=== PATIENT | female | born 1960 | race Caucasian/White ===

== ENCOUNTER 2017-01-31 10:52 | Outpatient (CLI) | payer SELFPAY | END 2017-01-31 10:53 | disposition home or self-care (01) | LOC: LAB.F 10:52 | PROVIDERS: ATTEND Physician Assistant | DX: I82.403 Acute embolism and thrombosis of unspecified deep veins of lower extremity, bilateral (principal); I27.82 Chronic pulmonary embolism; Z79.01 Long term (current) use of anticoagulants | CPT/HCPCS: 85610 ==

== ENCOUNTER 2017-02-10 15:12 | Outpatient (CLI) | payer SELFPAY | END 2017-02-10 15:13 | disposition home or self-care (01) | LOC: LAB.F 15:12 | PROVIDERS: ATTEND Physician Assistant | DX: Z79.01 Long term (current) use of anticoagulants (principal) | CPT/HCPCS: 85610 ==

== ENCOUNTER 2017-05-16 09:36 | Outpatient (CLI) | payer SELFPAY | END 2017-05-16 09:37 | disposition home or self-care (01) | LOC: LAB.F 09:36 | PROVIDERS: ATTEND Physician Assistant | DX: Z79.01 Long term (current) use of anticoagulants (principal); I82.403 Acute embolism and thrombosis of unspecified deep veins of lower extremity, bilateral; I27.82 Chronic pulmonary embolism | CPT/HCPCS: 85610 ==

== ENCOUNTER 2017-06-19 14:07 | Outpatient (CLI) | payer SELFPAY | END 2017-06-19 14:08 | disposition home or self-care (01) | LOC: LAB.F 14:07 | PROVIDERS: ATTEND Physician Assistant | DX: Z79.01 Long term (current) use of anticoagulants (principal); I82.403 Acute embolism and thrombosis of unspecified deep veins of lower extremity, bilateral; I27.82 Chronic pulmonary embolism | CPT/HCPCS: 85610 ==

== ENCOUNTER 2017-07-17 09:50 | Outpatient (CLI) | payer SELFPAY | END 2017-07-17 09:51 | disposition home or self-care (01) | LOC: LAB.F 09:50 | PROVIDERS: ATTEND Physician Assistant | DX: Z79.01 Long term (current) use of anticoagulants (principal); I82.403 Acute embolism and thrombosis of unspecified deep veins of lower extremity, bilateral; I27.82 Chronic pulmonary embolism | CPT/HCPCS: 85610 ==

== ENCOUNTER 2017-08-01 10:43 | Outpatient (CLI) | payer SELFPAY | END 2017-08-01 10:44 | disposition home or self-care (01) | LOC: LAB.F 10:43 | PROVIDERS: ATTEND Physician Assistant | DX: Z79.01 Long term (current) use of anticoagulants (principal); I82.403 Acute embolism and thrombosis of unspecified deep veins of lower extremity, bilateral; I27.82 Chronic pulmonary embolism | CPT/HCPCS: 85610 ==

== ENCOUNTER 2017-08-15 09:28 | Outpatient (CLI) | payer SELFPAY | END 2017-08-15 09:29 | disposition home or self-care (01) | LOC: LAB.F 09:28 | PROVIDERS: ATTEND Physician Assistant | DX: Z79.01 Long term (current) use of anticoagulants (principal); I82.403 Acute embolism and thrombosis of unspecified deep veins of lower extremity, bilateral; I27.82 Chronic pulmonary embolism | CPT/HCPCS: 85610 ==

== ENCOUNTER 2017-08-28 14:25 | Outpatient (CLI) | payer SELFPAY | END 2017-08-28 14:26 | disposition home or self-care (01) | LOC: LAB.F 14:25 | PROVIDERS: ATTEND Physician Assistant | DX: Z79.01 Long term (current) use of anticoagulants (principal); I82.403 Acute embolism and thrombosis of unspecified deep veins of lower extremity, bilateral; I27.82 Chronic pulmonary embolism | CPT/HCPCS: 85610 ==

== ENCOUNTER 2017-09-19 08:00 | Outpatient (CLI) | payer SELFPAY | END 2017-09-19 23:59 | disposition home or self-care (01) | LOC: LAB.F 08:00 | PROVIDERS: ATTEND Physician Assistant | DX: Z79.01 Long term (current) use of anticoagulants (principal); I82.403 Acute embolism and thrombosis of unspecified deep veins of lower extremity, bilateral; I27.82 Chronic pulmonary embolism | CPT/HCPCS: 85610 ==

== ENCOUNTER 2017-10-31 09:49 | Outpatient (CLI) | payer SELFPAY | END 2017-10-31 09:50 | disposition home or self-care (01) | LOC: LAB.F 09:49 | PROVIDERS: ATTEND Physician Assistant | DX: Z79.01 Long term (current) use of anticoagulants (principal); I82.403 Acute embolism and thrombosis of unspecified deep veins of lower extremity, bilateral; I27.82 Chronic pulmonary embolism | CPT/HCPCS: 85610 ==

== ENCOUNTER 2017-12-05 07:42 | Outpatient (CLI) | payer SELFPAY | END 2017-12-05 07:43 | disposition home or self-care (01) | LOC: LAB.F 07:42 | PROVIDERS: ATTEND Physician Assistant | DX: Z79.01 Long term (current) use of anticoagulants (principal); I82.403 Acute embolism and thrombosis of unspecified deep veins of lower extremity, bilateral; I27.82 Chronic pulmonary embolism | CPT/HCPCS: 85610 ==

== ENCOUNTER 2018-01-30 09:02 | Outpatient (CLI) | payer SELFPAY | END 2018-01-30 09:03 | disposition home or self-care (01) | LOC: LAB.F 09:02 | PROVIDERS: ATTEND Physician Assistant | DX: Z79.01 Long term (current) use of anticoagulants (principal); I82.403 Acute embolism and thrombosis of unspecified deep veins of lower extremity, bilateral; I27.82 Chronic pulmonary embolism | CPT/HCPCS: 85610 ==

== ENCOUNTER 2018-03-06 09:29 | Outpatient (CLI) | payer SELFPAY | END 2018-03-06 09:30 | disposition home or self-care (01) | LOC: LAB.F 09:29 | PROVIDERS: ATTEND Physician Assistant | DX: Z79.01 Long term (current) use of anticoagulants (principal); I82.403 Acute embolism and thrombosis of unspecified deep veins of lower extremity, bilateral; I27.82 Chronic pulmonary embolism | CPT/HCPCS: 85610 ==

== ENCOUNTER 2018-08-26 16:12 | Outpatient (CLI) | payer OTHER ==
--- NOTE | 2018-08-27 08:30 | Mammography Report ---
Reason: SCREENING MAMMO Procedure Date: 08/26/2018 Accession Number: [id number] / [id number] Procedure: KIKE - Screening Mammo w/Sedrick CPT Code: FULL RESULT: EXAM: Screening Mammo w/Sedrick DATE: 08/26/2018 5:05 PM CLINICAL HISTORY: Routine screening. No reported personal or family history of breast cancer. TECHNIQUE: Bilateral CC and MLO views were obtained. COMPARISON: 10/13/2015 through 04/30/2013 FINDINGS: The breasts demonstrate scattered fibroglandular densities bilaterally. Bilateral breasts: There are no suspicious masses, calcifications or areas of distortion. IMPRESSION: Negative examination RECOMMENDATION: Routine annual screening unless otherwise clinically indicated. BI-RADS CATEGORY 1: Negative STANDARD QUALIFYING STATEMENTS: 1. This examination was not reviewed with the aid of Computer-Aided Detection (CAD). 2. A negative or benign imaging report should not preclude biopsy if clinically suspicious findings are present. 3. Dense breasts may obscure an underlying neoplasm. 4. This examination was reviewed with the aid of 3D breast imaging (tomosynthesis).
== END 2018-08-26 16:13 | disposition home or self-care (01) ==
LOC: DI 16:12
PROVIDERS: ATTEND Physician Assistant
DX: Z12.31 Encounter for screening mammogram for malignant neoplasm of breast (principal)
CPT/HCPCS: 77063; 77067

== ENCOUNTER 2021-05-20 13:04 | Outpatient (CLI) | payer BC ==
--- NOTE | 2021-05-30 08:45 | Mammography Report ---
BILATERAL DIGITAL SCREENING MAMMOGRAM 3D/2D: 05/20/2021 CLINICAL: Routine screening. Comparison is made to exams dated: 09/15/2018 mammogram, 08/26/2018 mammogram, 10/13/2015 mammogram, and 06/03/2014 mammogram - [facility]. There are scattered fibroglandular elements in both breasts. No significant masses, calcifications, or other findings are seen in either breast. There has been no significant interval change. IMPRESSION: NEGATIVE There is no mammographic evidence of malignancy. A 1 year screening mammogram is recommended. This exam was interpreted at Station ID: [id number]. NOTE: For mammograms, a report in lay terms will be sent to the patient. Approximately 15% of breast malignancies will not be visualized mammographically. In the management of a palpable breast mass, a negative mammogram must not discourage biopsy of a clinically suspicious lesion. Electronically Signed By: Ishan Toure M.D. ddp/penrad:05/29/2021 15:19:39 ACR BI-RADS Category 1: Negative 3341F PARENCHYMAL PATTERN: (A) - The breast(s) demonstrate(s) scattered fibroglandular densities. BI-RADS CATEGORY: (1) - 1 RECOMMENDATION: (ANNUAL) - Recommend routine annual screening mammography. [id number] 1 year screening LATERALITY: (B)
== END 2021-05-20 13:05 | disposition home or self-care (01) ==
LOC: DI.S 13:04
DX: Z12.31 Encounter for screening mammogram for malignant neoplasm of breast (principal)

== ENCOUNTER 2021-10-01 08:25 | Emergency (ER) | payer BC ==
[2021-10-01 08:35] VITALS: BP 143/89
[2021-10-01] MEDS ORDERED: DOXYCYCLINE 100 MG TABLET PO STA (09:02)
--- NOTE | 2021-10-01 09:06 | ED Physician Documentation ---
History of Present Illness - Stated complaint Stated Complaint: COUGH/SOA/EAR PX - Chief complaint Chief Complaint: Resp - History obtained from History obtained from: Patient - Additonal information Additional information: The patient comes to the emergency department chief complaint of productive cough and fever, worsening over the last 2 weeks. She states the symptoms started about 2-1/2 weeks ago and seem like a "cold" at the time. She states that after several days, the symptoms seem to be starting to improve and then Started to worsen again. Patient developed sputum production and states she is also had started having fevers. She had a temp up to 101 yesterday, though her temperature was only 99.5 at home today. The patient tried to see her primary doctor but was only able to have a telehealth visit and her doctor called in some "cough medicine" for her. The patient states she does not have any underlying pulmonary issues. She is not a smoker. She is vaccinated and boosters for COVID and had a negative home Covid test a couple of days ago. No nausea, vomiting, or diarrhea. No chest or abdominal pain. She states it does hurt in her throat when she coughs and just feels blah. She is still having some secretory output from her nose, as well. No other complaints at this time. Review of Systems Ten Systems: 10 systems reviewed and negative Constitutional: reports: Reviewed and negative Eyes: reports: Reviewed and negative Ears: reports: Reviewed and negative Nose: reports: Rhinorrhea / runny nose, Congestion Throat: reports: Reviewed and negative Cardiac: reports: Reviewed and negative Respiratory: reports: Cough. denies: Dyspnea GI: reports: Reviewed and negative : reports: Reviewed and negative Skin: reports: Reviewed and negative Musculoskeletal: reports: Reviewed and negative Neurologic: reports: Reviewed and negative Psychiatric: reports: Reviewed and negative Endocrine: reports: Reviewed and negative Immunocompromised: reports: Reviewed and negative PD PAST MEDICAL HISTORY - Past Medical History Past Medical History: Yes Cardiovascular: Hypertension, Deep vein thrombosis Respiratory: None Endocrine/Autoimmune: Other GI: None LEASE ANALYST: None, Fibroids : None HEENT: None Psych: None Musculoskeletal: None Derm: None - Past Surgical History Past Surgical History: Yes /LEASE ANALYST: Hysterectomy - Present Medications Home Medications: Ambulatory Orders Medication Instructions Recorded Confirmed Aspirin/Calcium Carbonate/Mag 325 mg PO DAILY 04/27/14 04/27/14 [Aspirin Buffered 325 mg Tab] Citalopram [CeleXA] 10 mg PO DAILY 04/27/14 04/27/14 Enoxaparin [Lovenox] 100 mg SUBQ Q12H #14 syringe 04/27/14 lisinopriL [Lisinopril] 5 mg PO DAILY 04/27/14 04/27/14 Doxycycline Monohydrate 100 mg PO BID #14 cap 10/01/21 - Allergies Allergies/Adverse Reactions: Allergies Allergy/AdvReac Type Severity Reaction Status Date / Time No Known Drug Allergies Allergy Verified 10/01/21 08:34 - Social History Does the pt smoke?: No Smoking Status: Never smoker Does the pt drink ETOH?: Yes Does the pt have substance abuse?: No - Immunizations Immunizations are current?: Yes - POLST Patient has POLST: No PD ED PE NORMAL - Vitals Vital signs reviewed: Yes - General General: Alert and oriented X 3, No acute distress, Well developed/nourished - HEENT HEENT: Atraumatic, PERRL, EOMI, Moist mucous membranes - Neck Neck: Supple, no meningeal sign - Cardiac Cardiac: RRR, No murmur, Strong equal pulses - Respiratory Respiratory: No respiratory distress, Clear bilaterally - Abdomen Abdomen: Soft, Non tender, Non distended - Derm Derm: Normal color, Warm and dry, No rash - Extremities Extremities: No deformity, No edema, No calf tenderness / cord - Neuro Neuro: Alert and oriented X 3, client consultant 2-12 intact, Normal speech - Psych Psych: Normal mood, Normal affect Results - Vitals Vitals: Vital Signs - 24 hr 10/01/21 08:31 Temperature 36.7 C Heart Rate 104 H Respiratory 20 Rate Blood Pressure 143/89 H O2 Saturation 94 Oxygen O2 Source Room air - Rads (name of study) chest XR Radiology: Final report received, EMP read indepedently, See rad report (neg) PD MEDICAL DECISION MAKING - ED course Complexity details: reviewed results, re-evaluated patient, considered differential, d/w patient ED course: The patient was worked up with a chest x-ray which was negative. She was started on doxycycline, due to extended period of heavily productive cough, which was worsening, and development of fever. We have discussed the need for follow-up and the usual indications for return. Departure - Departure Disposition: 01 Home, Self Care Clinical Impression: Bronchitis Condition: Stable Instructions: ED Upper Resp Infec Abx Tx Prescriptions: Doxycycline Monohydrate 100 mg PO BID #14 cap
--- NOTE | 2021-10-01 09:06 | XRAY Report ---
PROCEDURE: Chest 1 View X-Ray INDICATIONS: chest pain TECHNIQUE: One view of the chest was acquired. COMPARISON: None. FINDINGS: Surgical changes and devices: None. Lungs and pleura: No pleural effusions or pneumothorax. Lungs are clear. Mediastinum: Mediastinal contours appear normal. Heart size is normal. Bones and chest wall: No suspicious bony lesions. Overlying soft tissues appear unremarkable. IMPRESSION: No acute cardiopulmonary pathology. Reviewed by: Jacob Whitmore MD on 10/01/2021 9:05 AM PDT Approved by: Jacob Whitmore MD on 10/01/2021 9:05 AM PDT Station ID: [id number]
== END 2021-10-01 09:17 | disposition home or self-care (01) ==
LOC: ED 08:25
DX: J40 Bronchitis, not specified as acute or chronic (principal)
CPT/HCPCS: 71045; 99282; 99283; A9270

== ENCOUNTER 2021-10-30 09:38 | Outpatient (CLI) | payer BC ==
[2021-10-30 15:00] LABS: ALBUMIN 4.3 g/dL (3.2-5.5); ALBUMIN/GLOBULIN RATIO 1.5 (1.0-2.2); BILIRUBIN,TOTAL 0.7 mg/dL (0.2-1.0); CALCIUM 9.6 mg/dL (8.5-10.3); CREATININE 0.8 mg/dL (0.4-1.0); POTASSIUM 4.3 mmol/L (3.5-5.0); TOTAL PROTEIN 7.2 g/dL (6.7-8.2)
== END 2021-10-30 09:39 | disposition home or self-care (01) ==
LOC: LAB.S 09:38
PROVIDERS: ATTEND Registered Nurse
DX: I10 Essential (primary) hypertension (principal)
CPT/HCPCS: 36415; 80053